=== PATIENT | female | born 2000 | race Caucasian/White ===

== ENCOUNTER 2021-02-11 17:24 | Emergency (ER) | payer BC ==
[~2021-02-11] VITALS: Ht 157.5 cm; Wt 105.7 kg
[2021-02-11] MEDS ORDERED: THERAFLU MS SE1 EACH PO (17:45)
[2021-02-11] MEDS ORDERED: IBUPROFEN IB200 MG PO (17:45)
[2021-02-11] MEDS ORDERED: CEPHALEXIN500 MG PO (17:45)
== END 2021-02-11 18:05 | disposition home or self-care (01) ==
LOC: FSED 17:35
DX: J02.9 Acute pharyngitis, unspecified (principal); J06.9 Acute upper respiratory infection, unspecified; R05 Cough; R51.9 Headache, unspecified
CPT/HCPCS: 99283